=== PATIENT | male | born 1955 | race Caucasian/White ===

== ENCOUNTER 2017-10-18 01:02 | Emergency (ER) | payer OTHER, MEDICAID, SELFPAY ==
[2017-10-18 01:11] VITALS: BP 140/90; PULSE 80; RESP 18; TEMP 36.6; O2SAT 98; BMI 25.0
[2017-10-18] MEDS: IBUPROFEN 800MG PREPACK 1 BOTTLE MISC (01:41)
[2017-10-18] MEDS: IBUPROFEN 400 MG TABLET 800 MG PO (01:42)
--- NOTE | 2017-10-18 02:07 | ED.EXTPRO ---
HPI - Extremity Problem General Chief complaint: Extremity Problem,Nontraumatic Stated complaint: FEET/KNEES CRACKED ON BOTTOM Time Seen by Provider: 10/18/17 01:27 Source: patient Mode of arrival: ambulatory History of Present Illness HPI Narrative: The patient is homeless. He walks he says about 25 miles per day. He has good clothing and good boots. He appears to be in good shape, athletic. He has blisters on his heels. He needs help with the blisters, he has no other complaints. The blisters have come up today. Review of Systems Review of Systems All systems reviewed & are unremarkable except as noted in HPI and below Constitutional Denies chills, Denies fever(s), Denies lethargy and Denies weakness Musculoskeletal Denies numbness Comments: Blisters on both heels. Integumentary/Breasts Denies pruritus, Denies erythema, Denies rash and Reports sores Neurologic Denies numbness and Denies weakness Exam Initial Vital Signs Initial Vital Signs: Vital Signs Temperature 97.9 F 10/18/17 01:11 Pulse Rate 80 10/18/17 01:11 Respiratory Rate 18 10/18/17 01:11 Blood Pressure 140/90 H 10/18/17 01:11 Pulse Oximetry 98 10/18/17 01:11 Const General: cooperative and well developed Nutritional Appearance: well nourished Orientation: alert, awake, oriented x3 and not confused Skin General: No jaundice, No petechiae and other (No rashes or lesions noted other than the mentioned issue with his feet) Neuro General: alert, oriented x3, gait normal and no focal motor deficits Speech: speech normal Gait: normal gait Motor: muscle tone normal throughout Sensory Exam: no sensory deficits noted Extrem Other: Blisters on the posterior calcaneal areas of both feet. The sites are tender to touch, there is no erythema. Nares. He has full range of motion at the ankles, without deformity or edema. His feet are nontender. His feet are neurovascularly intact. Course Orders Ordered: Discontinued Medications Ibuprofen (Advil) 800 mg PO NOW ONE Stop: 10/18/17 01:39 Last Admin: 10/18/17 01:42 Dose: 800 mg Ibuprofen (Ibuprofen 800mg Prepack) 1 bottle MISC SEEINSTR ONE Stop: 10/18/17 01:39 Last Admin: 10/18/17 01:41 Dose: 1 bottle Vital Signs - 8 hr 10/18/17 01:11 Temperature 97.9 F Pulse Rate 80 Respiratory Rate 18 Blood Pressure 140/90 H Pulse Oximetry 98 Discharge Plan Departure Patient Disposition: Home, Self-Care Clinical Impression: Blister of foot Instructions: Blisters Activity Restrictions/Additional Instructions: Motrin every 6 hours as needed for pain. Limit your walking and rest your feet for a couple days, allow the blisters to heal. Mole skin is the treatment of choice for blisters of the feet, you can find this in most drug stores. Return here as needed.
[2017-10-18 02:16] VITALS: BP 139/88; PULSE 80; RESP 18; O2SAT 100
== END 2017-10-18 02:17 | disposition home or self-care (01) ==
PROVIDERS: Emergency Provider Emergency Medicine
DX: S90.822A Blister (nonthermal), left foot, initial encounter (principal); S90.821A Blister (nonthermal), right foot, initial encounter; T73.3XXA Exhaustion due to excessive exertion, initial encounter
CPT/HCPCS: 99283